=== PATIENT | female | born 1975 | race Caucasian/White ===

== ENCOUNTER 2019-05-15 17:17 | Emergency (ER) | payer MEDICAID ==
[~2019-05-15] VITALS: Ht 157.5 cm; Wt 70.0 kg
[2019-05-15 17:33] VITALS: BP 144/80
[2019-05-15] MEDS ORDERED: LURA80TA3 PO (18:16)
[2019-05-15] MEDS ORDERED: DIVA-76 PO (18:16)
[2019-05-15] MEDS ORDERED: MIRT-92 PO (18:16)
[2019-05-15] MEDS ORDERED: CLON-529 PO (18:16)
[2019-05-15] MEDS ORDERED: PERP4TAB11 PO (18:16)
[2019-05-15] MEDS ORDERED: QUET-1 PO (18:16)
== END 2019-05-15 18:34 | disposition home or self-care (01) ==
LOC: ER 17:18
DX: F20.9 Schizophrenia, unspecified (principal); F22 Delusional disorders; Z76.0 Encounter for issue of repeat prescription; Z79.899 Other long term (current) drug therapy
CPT/HCPCS: 99281